=== PATIENT | female | born 1945 | race Caucasian/White ===

== ENCOUNTER → 2017-08-24 | Outpatient (CLI) | payer MEDICARE ==
[2017-08-24 15:33] LABS: BILIRUBIN,URINE NEG (NEG); CLARITY,URINE BLOODY; COLOR,URINE RED; GLUCOSE,URINE NEG (NEG)
[2017-08-24 15:34] LABS: BACTERIA,URINE 0 /HPF (0-FEW); NITRITE,URINE POS (NEG); RBC,URINE TNTC /HPF (0-2); UROBILINOGEN,URINE 1 mg/dL (0.2 mg/dL); WBC,URINE RARE /HPF (0-4)
== END | disposition home or self-care (01) ==
LOC: LAB 15:06
PROVIDERS: ATTEND Family Medicine
DX: R30.0 Dysuria (principal)
CPT/HCPCS: 81001; 87086; 87186

== ENCOUNTER → 2018-01-22 | Outpatient (CLI) | payer MEDICARE ==
--- NOTE | 2018-01-23 11:50 | RAD ---
DATE: 01/22/2018 EXAM: MAMMO BARRETT SCREENING BILATERAL HISTORY: Routine screening COMPARISON: 10/18/2016 This study was interpreted with the benefit of Computerized Aided Detection (CAD). The breast parenchyma shows scattered fibroglandular densities. Breast parenchyma level B.. FINDINGS: 2-D and 3-D tomosynthesis imaging was performed in CC and MLO projections. No new or enlarging breast densities are seen. No suspicious microcalcifications are evident. IMPRESSION: Stable mammograms without evidence of malignancy. BI-RADS CATEGORY: 1 NEGATIVE RECOMMENDED FOLLOW-UP: 12M 12 MONTH FOLLOW-UP PQRS compliance statement: Patient information was entered into a reminder system with a target due date for the next mammogram. Mammography is a sensitive method for finding small breast cancers, but it does not detect them all and is not a substitute for careful clinical examination. A negative mammogram does not negate a clinically suspicious finding and should not result in delay in biopsying a clinically suspicious abnormality. "Our facility is accredited by the [employer] Mammography [employer]."
== END | disposition home or self-care (01) ==
LOC: MAMMO 11:17
PROVIDERS: ATTEND Nurse Practitioner Family
DX: Z12.31 Encounter for screening mammogram for malignant neoplasm of breast (principal)
CPT/HCPCS: 77063; 77067

== ENCOUNTER → 2019-01-23 | Outpatient (CLI) | payer MEDICARE ==
--- NOTE | 2019-01-23 10:51 | RAD ---
DATE: 01/23/2019 EXAM: MAMMO BARRETT SCREENING BILATERAL HISTORY: Routine screening COMPARISON: 01/22/2018 This study was interpreted with the benefit of Computerized Aided Detection (CAD). Breast Density: SCATTERED The breast parenchyma shows scattered fibroglandular densities. Breast parenchyma level B. FINDINGS: 2-D and 3-D tomosynthesis imaging was performed in CC and MLO projections. No new or enlarging breast densities are seen. No suspicious microcalcifications are evident. IMPRESSION: Stable mammograms without evidence of malignancy. BI-RADS CATEGORY: 2 BENIGN FINDING(S) RECOMMENDED FOLLOW-UP: 12M 12 MONTH FOLLOW-UP PQRS compliance statement: Patient information was entered into a reminder system with a target due date for the next mammogram. Mammography is a sensitive method for finding small breast cancers, but it does not detect them all and is not a substitute for careful clinical examination. A negative mammogram does not negate a clinically suspicious finding and should not result in delay in biopsying a clinically suspicious abnormality. "Our facility is accredited by the [employer] Mammography [employer]."
== END | disposition home or self-care (01) ==
LOC: MAMMO 09:17
PROVIDERS: ATTEND Physician Assistant Medical
DX: Z12.31 Encounter for screening mammogram for malignant neoplasm of breast (principal)
CPT/HCPCS: 77063; 77067

== ENCOUNTER → 2019-06-25 | Outpatient (CLI) | payer MEDICARE ==
[~2019-06-25] MED LIST: IOHEXOL 350 MG/ML 100 ML VIAL. IV ONE
[2019-06-25 09:17] LABS: GFR 54.5
--- NOTE | 2019-06-25 16:59 | RAD ---
CT of the abdomen and pelvis without comparison for history of chronic diarrhea, abdominal pain, and back pain. TECHNIQUE: Contiguous axial images are obtained from the apex of diaphragm to the pelvic floor following ministration of IV contrast in the arterial phase. Sagittal and coronal MIPS are evaluated as are 3-D volume rendered images of the vasculature. Nonvascular findings: The lung bases are clear. Evaluation of the abdominal organs is somewhat limited by arterial phase of enhancement, however no gross abnormal normality is involving the liver, spleen, pancreas, bilateral adrenal glands, or bilateral kidneys are identified. No free or loculated fluid collections are seen. No abdominal masses are evident. No suspicious lymphadenopathy is seen. The urinary bladder is partially fluid distended and grossly unremarkable. Uterus is present with some coarse myometrial calcifications likely representing sequelae of uterine fibroids. The cecum, and ascending, transverse, and descending colon are decompressed but notable for diffuse fatty infiltration of the wall consistent with fat halo sign. This can be associated with inflammatory bowel disease, but could also be of normal incidental finding. No areas of focal bowel wall thickening or bowel dilatation are evident. No suspicious osteoblastic or osteolytic bone lesions are identified. Vascular findings: There is moderate multifocal atherosclerosis. The aorta is nonaneurysmal. No significant aortic stenoses. The celiac artery, superior mesenteric artery, and right renal arteries are widely patent. There is bulky calcified atherosclerosis within the proximal portion of the left renal artery producing approximately 50 percent stenosis. The inferior mesenteric artery is diminutive but patent. Bilateral common iliac, external iliac, and internal iliac arteries are all patent as well with no aneurysms in these distributions. There is moderate multifocal atherosclerosis with no significant stenoses identified. Bilateral common femoral arteries are patent. IMPRESSION: 1. Long segment of diffuse fatty infiltration involving the colon from the cecum to the sigmoid without skip areas, and without associated pericolonic inflammation. This finding is nonspecific but can be indicative of inflammatory bowel disease. Given the distribution, ulcerative colitis would be favored over Crohn's disease. This finding can also be normal however. 2. No evidence of mesenteric arterial insufficiency. PQRS Compliance Statement: One or more of the following individualized dose reduction techniques were utilized for this examination: 1. Automated exposure control 2. Adjustment of the mA and/or kV according to patient size 3. Use of iterative reconstruction technique Electronically signed by: Eulogio Jones MD (06/25/2019 4:56 PM) [facility]
== END | disposition home or self-care (01) ==
LOC: CT 08:18
PROVIDERS: ATTEND Internal Medicine Gastroenterology
DX: K59.09 Other constipation (principal); K51.90 Ulcerative colitis, unspecified, without complications; I70.0 Atherosclerosis of aorta
CPT/HCPCS: 36415; 74174; 82565; 84520; Q9967

== ENCOUNTER → 2020-02-19 | Outpatient (CLI) | payer MEDICARE ==
--- NOTE | 2020-02-19 11:47 | RAD ---
INDICATION: 74 years of age asymptomatic female patient presents for screening mammography. TECHNIQUE: Full field craniocaudal and mediolateral oblique images of both breasts were obtained using digital technique with tomosynthesis and also analyzed with computer-aided detection software. COMPARISON: Prior mammographic imaging dating back to 01/23/2019. BREAST COMPOSITION: There are scattered fibroglandular densities. FINDINGS: Benign calcifications are present. The parenchymal pattern appears stable. No suspicious masses, microcalcifications or architectural distortion is present to suggest malignancy in either breast. The visualized axillae are unremarkable. IMPRESSION: No mammographic evidence of malignancy. RECOMMENDATION: Annual screening mammography is recommended, unless clinically indicated sooner based on symptoms or change in physical exam. BIRADS 2: BENIGN Electronically signed by: Gagandeep Wren MD (02/19/2020 11:44 AM) [place] [id number]
== END ==
LOC: MAMMO 09:41
PROVIDERS: ATTEND Physician Assistant Medical
DX: Z12.31 Encounter for screening mammogram for malignant neoplasm of breast (principal)
CPT/HCPCS: 77063; 77067

== ENCOUNTER → 2021-02-22 | Outpatient (CLI) | payer MEDICARE ==
--- NOTE | 2021-02-22 09:43 | RAD ---
DXA BONE DENSITY AXIAL History: Reason: OSTEOPENIA / Spl. Instructions: / History: Postmenopausal Comparison: November 08, 2016 TECHNIQUE: Dual energy x-ray absorptiometry of the lumbar spine and right hip was performed. T-score of average bone mineral density based was calculated based on standard deviations above or below the expected young adult normal value. Diagnostic definitions were established by the [employer]. FINDINGS: The average bone mineral density associated with L1-L4 is 1.285 g/cm^2, corresponding with a T-score of 0.9. Increased compared to prior. The average total bone mineral density associated with right hip is 0.827 g/cm^2, corresponding with a T-score of -1.0. Decreased bone mineral density compared to prior. Refer to the worksheets for full detail. IMPRESSION: 1. Osteopenia. Average bone mineral density yields a T-score between -1.0 and -2.5. Fracture risk is increased. 2. Decreased bone mineral density within the right hip compared to prior. Electronically signed by: Dein Valdez DO (02/22/2021 9:41 AM) [facility]
--- NOTE | 2021-02-23 18:03 | RAD ---
DATE: 02/22/2021 EXAM: MAMMO BARRETT SCREENING BILATERAL HISTORY: Screening COMPARISON: 10/04/2015, 10/18/2016, 01/22/2018 This study was interpreted with the benefit of Computerized Aided Detection (CAD). Breast Density: SCATTERED The breast parenchyma shows scattered fibroglandular densities. Breast parenchyma level B. FINDINGS: No mass, suspicious calcification, or architectural distortion in either breast. IMPRESSION: No evidence of malignancy. BI-RADS CATEGORY: 1 NEGATIVE RECOMMENDED FOLLOW-UP: 12M 12 MONTH FOLLOW-UP PQRS compliance statement: Patient information was entered into a reminder system with a target due date for the next mammogram. Mammography is a sensitive method for finding small breast cancers, but it does not detect them all and is not a substitute for careful clinical examination. A negative mammogram does not negate a clinically suspicious finding and should not result in delay in biopsying a clinically suspicious abnormality. "Our facility is accredited by the [employer] Mammography [employer]."
== END ==
LOC: MAMMO 08:48
PROVIDERS: ATTEND Physician Assistant Medical
DX: Z12.31 Encounter for screening mammogram for malignant neoplasm of breast (principal); M85.88 Other specified disorders of bone density and structure, other site
CPT/HCPCS: 77063; 77067; 77080

== ENCOUNTER → 2021-10-05 | Outpatient (CLI) | payer MEDICARE ==
[~2021-10-05] MED LIST changes: -IOHEXOL 350 MG/ML 100 ML VIAL. IV ONE; +REGADENOSON 0.4 MG/5 ML DISP.SYRIN. IV ONE
--- NOTE | 2021-10-05 12:35 | RAD ---
MR#: [id number] Date of Study: 10/05/2021 Ordering Physician: SALUD MONAHAN, Referring Physician: KEENAN HICKEY Tech: RT Emilie (R) (N) APPROVED REPORT Test Type: Pharmacological Stress Nurse/Tech: Cathleen / Adalid Test Indications: Hyperlipidemia Cardiac History: No known cardiac Medications: See EHR Resting Heart Rate: 48 bpm Resting Blood Pressure: 191/65mmHg Pretest Chest Pain: None Pharm. Details Pharmacologic stress testing was performed using 0.4mg per 5ml of regadenoson given intravenously ove r 7-10 seconds. Stress Symptoms Dyspnea POST EXERCISE Reason for Termination: Infusion complete Max HR: 90 bpm Blood Pressure response to exercise: Normal blood pressure response during stress. Heart Rate response to exercise: Increase/normal Chest Pain: No. Arrhythmia: No. ST Change: No. INTERPRETATION Stress EKG Conclusion: Baseline EKG showed sinus rhythm. No ischemic changes at peak stress. No arr hythmias. Imaging Protocol IMAGE PROTOCOL: Rest Tc-99m/stress Tc-99m 1 day Rest: Stress: Viability: Radiopharm.Tc99m [id number] Sestamibi Eolp32fRe 33mCi Duration 15min. 15min. Img Date 10/05/2021 10/05/2021 Inj-Img [id number]. 65min. Rest Admin Site:IV - Left HandAdministrator: RT Emilie (R)(N) Stress Admin Site: IV - Left HandAdministrator: RT Emilie (R)(N) STRESS DATA End Diast. Vol.73.0mlAv. Heart Rate57.0bpm End Syst. Vol.9.0mlCO Index BSA0.0L/min Myocardial Tiig243.0gEject. Tsqvpyul16.0% Stress Rates Pk. Fill Rate3.04EDV/secLVtime Pk. Fill 171.86msec Pk. Empty Rate3.22ESV/secLVtime Pk. Aldqa708.18msec 09/26 Pk. Fill1.80EDV/sec Stress Scores Regional WT0.00Summed WT3.00 Regional WM0.00Summed WM0.00 Study quality was good. Left Ventricular size was Normal at Rest and Stress. Lung uptake was . Left Ventricular ejection fraction is 77%. The rest and stress images show normal perfusion, normal contraction and thickening. LV Perf. Quant 17 Seg. SSS0.00 17 Seg. SRS7.00 17 Seg. SDS0.00 Stress Defect Extent (% LAD)0.00Rest Defect Extent (% LAD)20.00Rev. Defect Extent (% LAD)0.00 Stress Defect Extent (% LCX) 0.00Rest Defect Extent (% LCX)0.00Rev. Defect Extent (% LCX)0.00 Stress Defect Extent (% RCA)0.00Rest Defect Extent (% RCA)0.00Rev. Defect Extent (% RCA)0.00 Stress Defect Extent (% DERIC)0.00Rest Defect Extent (% DERIC)9.10Rev. Defect Extent (% DERIC)0.00 Conclusion 1. Regadenoson cardioisotope stress test did not show any evidence of ischemia or infarct. 2. Normal left ventricular systolic function with ejection fraction calculated at 77%. 3. Low risk for cardiac events. Signed by : Salud Monahan, Electronically Approved : 10/05/2021 12:34:54
== END ==
LOC: NM 08:18
PROVIDERS: ATTEND Internal Medicine Cardiovascular Disease
DX: E78.5 Hyperlipidemia, unspecified (principal)
CPT/HCPCS: 78452; 93017; A9500; J2785

== ENCOUNTER → 2021-12-27 | Outpatient (CLI) | payer MEDICARE ==
--- NOTE | 2021-12-27 19:28 | RAD ---
Study: XR ABDOMEN 1V Indication: Abdominal pain. Comparison: None. Findings: Localized gaseous distention of colon at the left lower quadrant. Scattered gas within normal-caliber colon elsewhere. Scattered gas within nondilated small bowel. Minimal colonic stool. Increased densi ty projecting within the pelvis may be associated with the uterus/uterine fibroid. Degenerative dextr ocurvature centered at the thoracolumbar junction and incompletely evaluated multilevel spondylosis. Mild degenerative changes at the sacroiliac joints and pubic symphysis. Maintained hip joint space he ight. Impression: Nonspecific gaseous distention of a short segment of colon at the left lower quadrant but overall the bowel gas pattern is nonobstructive. Minimal colonic stool. Electronically signed by: LEE VARGAS MD (12/27/2021 7:25 PM) [facility]
== END ==
LOC: RAD 18:20
PROVIDERS: ATTEND Nurse Practitioner Family
DX: K63.89 Other specified diseases of intestine (principal); M47.815 Spondylosis without myelopathy or radiculopathy, thoracolumbar region; Z68.28 Body mass index [BMI] 28.0-28.9, adult
CPT/HCPCS: 74018